=== PATIENT | female | born 1980 | race Caucasian/White ===

== ENCOUNTER 2020-09-12 05:21 | Emergency (ER) | payer OTHER | END 2020-09-12 09:25 | LOC: ED 05:21 | DX: Z02.89 Encounter for other administrative examinations (principal) ==

== ENCOUNTER 2020-09-12 05:21 | Emergency (ER) | payer SELFPAY ==
[~2020-09-12] VITALS: Ht 162.6 cm; Wt 81.6 kg
[2020-09-12 05:23] VITALS: Ht 162.6 cm; Wt 81.6 kg
[2020-09-12 09:25] VITALS: BP 113/68
== END 2020-09-12 09:25 ==
LOC: ED 05:21
DX: S52.615A Nondisplaced fracture of left ulna styloid process, initial encounter for closed fracture (principal); V49.9XXA Car occupant (driver) (passenger) injured in unspecified traffic accident, initial encounter; Y93.89 Activity, other specified; Y92.89 Other specified places as the place of occurrence of the external cause; Y99.8 Other external cause status